=== PATIENT | male | born 1970 | race Caucasian/White ===

== ENCOUNTER 2020-05-08 16:26 | Outpatient (CLI) | payer OTHER, SELFPAY | END 2020-05-08 16:27 | disposition home or self-care (01) | LOC: ANHCOVIDVC 16:26 | PROVIDERS: PCP Family Medicine | DX: Z23 Encounter for immunization (principal) | CPT/HCPCS: 0001A; 91300 ==

== ENCOUNTER 2020-05-29 16:03 | Outpatient (CLI) | payer OTHER, SELFPAY | END 2020-05-29 16:04 | disposition home or self-care (01) | LOC: ANHCOVIDVC 16:03 | PROVIDERS: PCP Family Medicine | DX: Z23 Encounter for immunization (principal) | CPT/HCPCS: 0002A; 91300 ==

== ENCOUNTER → 2020-06-20 14:02 | Outpatient (CLI) | payer OTHER, SELFPAY ==
--- NOTE | ~2020-06-20 | XR_ITS ---
EXAMINATION: XR ankle RT min 3V INDICATION: Right ankle pain, initial encounter TECHNIQUE: Four views of the right ankle are obtained. COMPARISON: None available FINDINGS: Ankle soft tissue swelling is present. There is a subtle curvilinear lucency in the tip of the lateral malleolus. No additional acute osseous findings are evident. There appears to be an old i njury of the lateral malleolus as well. Bone alignment is normal. IMPRESSION: 1. Likely nondisplaced avulsion fracture of the lateral malleolus. Reviewed, dictated and finalized at location B.
== END ==
PROVIDERS: PCP Nurse Practitioner Family; Visit Provider Nurse Practitioner Family
DX: M25.571 Pain in right ankle and joints of right foot (principal)
CPT/HCPCS: 73610

== ENCOUNTER 2020-06-20 14:35 | Emergency (ER) | payer OTHER, SELFPAY ==
--- NOTE | 2020-06-20 14:42 | ED.LOWEXIN ---
HPI - Extremity Injury (Lower) General Chief Complaint: Extremity Injury, Lower Stated Complaint: R ANKLE PAIN Time Seen by Provider: 06/20/20 14:42 Source: patient and RN notes reviewed History of Present Illness HPI Narrative: Patient is a 49-year-old male who presents the urgent care with complaints of right ankle pain and swelling. Patient states that he slipped on Dennis glue bottle coming off a ladder at home. Patient states it happened last Wednesday. States that he iced and elevated the ankle for 2 days and has been wrapping it and continued to go about his daily activities. Patient states he is also been taking some pain medication in the evenings. States that after long days the ankle does swell significantly. Denies of any other acute complaints. No acute distress noted. Patient aware of the plan of care. Some parts of this dictation were generated by voice recognition software and may contain typographical and/or grammatical inaccuracies. Related Data Allergies Allergy/AdvReac Type Severity Reaction Status Date / Time No Known Allergies Allergy Verified 06/20/20 14:53 Review of Systems Review of Systems: Narrative: CONSTITUTIONAL: Denies fever, chills, or sweats. EYES: Denies visual changes, redness, or discharge. ENT: Denies rhinorrhea, congestion, sore throat, or otalgia. CARDIOVASCULAR: Denies chest pain, palpitations, or edema. RESPIRATORY: Denies cough or dyspnea. GASTROINTESTINAL: Denies abdominal pain, nausea, vomiting, or diarrhea. GENITOURINARY: Denies dysuria or hematuria. SKIN: Denies rash or itching. MUSCULOSKELETAL: Reports of right ankle pain and swelling NEUROLOGIC: Denies headache, numbness, or weakness. All other systems reviewed are negative, except as documented in HPI. PMFSH Social History Social History Smoking status: Current every day smoker Alcohol intake: current Comments At the time of my signature, I reviewed and agree with the nursing past medical, surgical, social, and family history. There is no relevant family history pertinent to the patient complaint. Exam Narrative: Exam Narrative: GENERAL: This is a well-nourished, well-developed patient, in no apparent distress. HEAD: normocephalic, atraumatic. EYES: PERRL. Sclera clear/white. Vision is grossly intact. EARS: External ears normal NOSE: External nose normal with no obvious nasal discharge, nares without redness, no rhinorrhea. THROAT: Mucous membranes moist NECK: Neck supple SKIN: warm, intact with no suspicious lesions or rash, good texture and turgor. NEURO: awake, alert, and oriented to person, place and time. There were no obvious focal neurologic abnormalities. EXTREMITIES: Course Vital Signs Vital signs: Vital Signs Temperature 97.9 F 06/20/20 14:53 Pulse Rate 72 06/20/20 14:53 Respiratory Rate 16 06/20/20 14:53 Blood Pressure 157/84 H 06/20/20 14:53 Pulse Oximetry 99 06/20/20 14:53 Temperature 97.9 F 06/20/20 14:53 Pulse Rate 72 06/20/20 14:53 Respiratory Rate 16 06/20/20 14:53 Blood Pressure 157/84 H 06/20/20 14:53 Pulse Oximetry 99 06/20/20 14:53 Reviewed-patient is informed that they may have pre-hypertension or hypertension based on a blood pressure reading in the department. I recommend the patient call the primary care provider listed on their discharge instructions or a physician of their choice this week to arrange follow-up for further evaluation of possible pre-hypertension or hypertension. Procedures Orthopedic Splinting/Casting Injury #1: Side: right Lower Extremity Injury Location: ankle OCL: short leg Pre-Procedure Neuro Vascular Exam: normal Post-Procedure Neuro Vascular Exam: normal Other Orthopedic Equipment: crutches Additional Comments: Short leg posterior right OCL placed for lateral right malleolus nondisplaced fracture. Use of crutches directed. No complications. Procedure tolerated. Successful.
[2020-06-20 14:53] VITALS: BP 157/84; PULSE 72; RESP 16; TEMP 36.6; O2SAT 99
== END 2020-06-20 15:23 | disposition home or self-care (01) ==
PROVIDERS: Emergency Provider Nurse Practitioner Family; PCP Family Medicine
DX: S82.61XA Displaced fracture of lateral malleolus of right fibula, initial encounter for closed fracture (principal); W11.XXXA Fall on and from ladder, initial encounter; F17.200 Nicotine dependence, unspecified, uncomplicated
CPT/HCPCS: 29515; 99214; G0463

== ENCOUNTER 2022-02-09 19:12 | Emergency (ER) | payer OTHER, SELFPAY ==
[2022-02-09 19:22] VITALS: BP 156/107; PULSE 88; RESP 18; TEMP 37.6; O2SAT 98
--- NOTE | 2022-02-09 19:29 | ED.BACK ---
HPI - Back Pain/Injury General Chief Complaint: Back Pain/Injury Stated Complaint: BACK PAIN Time Seen by Provider: 02/09/22 19:25 Source: patient Mode of arrival: ambulatory Limitations: no limitations History of Present Illness HPI Narrative: Mr. Guerrero is a 51-year-old male patient presenting to the clinic today with complaints of right shoulder pain and left sciatica type pain. He reports he has been done with the sciatica for a couple weeks now and has been on a couple rounds of prednisone for the symptoms. States he was doing some stretches and thinks he may have over compensated and injured his right shoulder. He reports that there is pain to the anterior shoulder and he is having difficulty with any movement due to the pain. Related Data Allergies Allergy/AdvReac Type Severity Reaction Status Date / Time No Known Allergies Allergy Verified 02/09/22 19:21 Review of Systems Review of Systems: Pertinent positives per HPI. Patient denies any fever, chills, rash, headache, visual changes, dizziness, cough, runny nose, sore throat, shortness of breath, chest pain, palpitations, nausea, vomiting, diarrhea, constipation, abdominal pain, or any urinary issues. PMFSH Past Medical History Medical History Anxiety state, unspecified Cervical radiculopathy at C5 Cubital tunnel syndrome on right Entrapment of left ulnar nerve Right lumbar radiculopathy Vitamin D deficiency, unspecified Surgical History Surgical History History of laminectomy Social History Social History Smoking packs per day: 1 Smoking cigarettes per day: 20.0 Smoking status: Current every day smoker Alcohol intake: current Alcohol use details: occasional Comments At the time of my signature, I reviewed and agree with the nursing past medical, surgical, social, and family history. There is no relevant family history pertinent to the patient complaint. Exam Narrative: General: Well-developed, well nourished, in no apparent distress Head: Normocephalic, atraumatic. Cardio: Regular rate and rhythm, s1 and s2 normal, no murmur appreciated. Resp: Clear to auscultation bilaterally, no rhonchi, rales, wheezing or rubs. Musculoskeletal: No deformity, tender to palpation over the anterior portion of the right shoulder, pain with extension, anterior reach, or posterior reach, very limited range of motion of the right shoulder due to pain, tenderness to palpation over the left posterior hip/SI joint with radiation of pain down the left leg, bilateral lower muscle strength strong and equal, peripheral pulse strong, no edema, no cyanosis, normal gait and station Course Course Emergency Course: Portions of this record may have been created with voice recognition software. Level of Care: Express Care Visit Vital Signs Vital signs: Vital Signs Temperature 37.6 C 02/09/22 19: Pulse Rate 88 02/09/22 19:22 Respiratory Rate 18 02/09/22 19:22 Blood Pressure 156/107 H 02/09/22 19:22 Pulse Oximetry 98 02/09/22 19:22 Oxygen Delivery Room Air 02/09/22 19:22 Temperature 37.6 C 02/09/22 19:22 Pulse Rate 88 02/09/22 19:22 Respiratory Rate 18 02/09/22 19:22 Blood Pressure 156/107 H 02/09/22 19:22 Pulse Oximetry 98 02/09/22 19:22 Oxygen Delivery Room Air 02/09/22 19:22 Vital signs reviewed MDM - Back Pain/Injury MDM Narrative Medical decision making narrative: At the time of visit patient appears to be pretty uncomfortable. He has limited range of motion to the right shoulder due to pain. I suspect he has a shoulder strain as well as left-sided sciatica. Prescription for naproxen and Flexeril was sent to the pharmacy. Supportive measures were discussed with the patient he voiced understanding of discharge instructions. Arm sling
[2022-02-09] MEDS: KETOROLAC (*BKC) 60 MG/2 ML VIAL IM (19:35)
== END 2022-02-09 19:50 | disposition home or self-care (01) ==
PROVIDERS: Emergency Provider Nurse Practitioner Family; PCP Family Medicine
DX: M54.32 Sciatica, left side (principal); S46.912A Strain of unspecified muscle, fascia and tendon at shoulder and upper arm level, left arm, initial encounter; X58.XXXA Exposure to other specified factors, initial encounter; F17.210 Nicotine dependence, cigarettes, uncomplicated
CPT/HCPCS: 96372; 99213; A4565; G0463; J1885

== ENCOUNTER 2022-02-28 09:51 | Outpatient (CLI) | payer OTHER, SELFPAY ==
--- NOTE | ~2022-02-28 | MR_ITS ---
MRI of the lumbar spine Clinical History: Sciatica Technique: Axial T2-weighted images, and sagittal T1-weighted, T2-weighted, and T2 fat-sat images wer e acquired. Findings: No fracture or subluxation identified in the lumbar spine. Vertebral bodies maintain normal height and alignment. No suspicious bone marrow signal abnormality seen. At L1-L2, there is no disc bulge or herniation. There is facet arthropathy. No spinal canal stenosis or neural foraminal narrowing. At L2-L3, there is minimal disc bulge with mild facet arthropathy. No spinal canal stenosis or neural foraminal narrowing. At L3-L4, there is a central disc protrusion with probable superimposed extrusion, extending inferior ly, and resulting in moderate compression of the thecal sac at this level. Bilateral neural foramina are preserved. At L4-L5, there is diffuse disc bulge with facet arthropathy. No armand spinal canal stenosis. There i s moderate to severe right neural foraminal narrowing and moderate left neural foraminal narrowing. At L5-S1, there is mild central disc protrusion with mild facet arthropathy. No spinal canal stenosis . There is mild to moderate right neural foraminal narrowing and mild left neural foraminal narrowing . Paravertebral soft tissues are unremarkable. Impression: Probable disc protrusion and superimposed extrusion at L3-L4, resulting in moderate thecal sac compre ssion at this level. Bilateral neural foraminal narrowing at L4-L5 and L5-S1, as detailed above. Reviewed, dictated and finalized at [facility]. PREP WORKER Impression: Probable disc protrusion and superimposed extrusion at L3-L4, resulting in mode rate thecal sac compression at this level. Bilateral neural foraminal narrowing at L4-L5 and L5-S1, as detailed above.
== END 2022-02-28 09:52 | disposition home or self-care (01) ==
PROVIDERS: PCP Family Medicine; Visit Provider Physician Assistant
DX: M54.32 Sciatica, left side (principal)
CPT/HCPCS: 72148

== ENCOUNTER 2022-03-13 14:49 | Outpatient (CLI) | payer OTHER, SELFPAY ==
--- NOTE | ~2022-03-13 | CT_ITS ---
EXAMINATION: CT lumbar spine wo con DATE: 03/13/2022 15:07 INDICATION: Lumbar radiculopathy. TECHNIQUE: Computed tomography (CT) of the lumbar spine was performed without intravenous contrast. A utomated exposure control and iterative reconstruction technique were employed. The dose-length produ ct was 417.55 mGy-cm. COMPARISON: Lumbar spine MRI 02/28/2022 FINDINGS: There is 6 degrees dextrocurvature of thoracic lumbar spine. There is mild chronic anterior wedging of T11-L1 vertebral bodies. There is mildly decreased disc height at L2-L3 and L3-L4, modera tely decreased disc height at L4-L5, and severely decreased disc height at L5-S1 with endplate remode ling. There is developmental osseous central canal stenosis from L2-L4. The following disc levels are specifically discussed: L1-L2: The disc does not extend beyond the endplate margin. There is moderate bilateral facet joint o steoarthritis. There is no neural foraminal stenosis. There is no central canal stenosis. L2-L3: The disc is bulging. There is mild bilateral facet joint osteoarthritis. There is mild bilater al neural foraminal stenosis. There is mild central canal stenosis. L3-L4: The disc is bulging. There is severe bilateral facet joint osteoarthritis. There is mild bilat eral neural foraminal stenosis. There is moderate central canal stenosis. L4-L5: The disc is bulging. There is severe bilateral facet joint osteoarthritis. There is moderate b ilateral neural foraminal stenosis. There is mild central canal stenosis. L5-S1: The disc is bulging. There is severe bilateral facet joint osteoarthritis. There is moderate r ight and mild left neural foraminal stenosis. There is mild central canal stenosis. IMPRESSION: 1. Severe lumbar spondylosis. Reviewed, dictated and finalized at location A. LIANDEER LOPPER
== END 2022-03-13 14:50 | disposition home or self-care (01) ==
PROVIDERS: PCP Family Medicine; Visit Provider Neurological Surgery
DX: M47.26 Other spondylosis with radiculopathy, lumbar region (principal)
CPT/HCPCS: 72131

== ENCOUNTER 2022-03-23 11:11 | Outpatient (CLI) | payer OTHER, SELFPAY ==
[2022-03-23 11:36] LABS: Basophils Absolute Auto 0.05 K/mm3 (0.00-0.10); Basophils Percent Auto 0.5 % (0.0-1.0); Eosinophils Absolute Auto 0.09 K/mm3 (0.02-0.50); Eosinophils Percent Auto 0.9 % (1.0-6.0); Hematocrit 45.4 % (40.0-54.0); Hemoglobin 15.2 g/dL (14.0-18.0); Immature Granulocyte Absolute 0.05 K/mm3 (0.00-0.00); Immature Granulocyte Percent A 0.5 % (0.0-0.0); Lymphocytes Absolute Auto 2.73 K/mm3 (1.10-4.50); Lymphocytes Percent Auto 26.3 % (18.0-42.0); Mean Corpuscular HGB Conc 33.5 g/dL (32.0-36.0); Mean Corpuscular Hemoglobin 32.3 pg (27.0-31.0); Mean Corpuscular Volume 96.6 fL (78.0-102.0); Mean Platelet Volume 8.7 fl (8.7-11.0); Monocytes Percent Auto 9.6 % (2.0-11.0); Neutrophils Absolute Auto 6.5 K/mm3 (1.7-7.2); Neutrophils Percent Auto 62.2 % (50.0-70.0); Platelet Count Result 315 K/mm3 (150-420); Red Cell Distribution Width 13.1 % (11.6-14.4); White Blood Count 10.4 K/mm3 (4.8-10.8)
[2022-03-23 11:50] LABS: Partial Thromboplastin Time 29.2 SEC (23.90-30.70); Prothrombin Time 10.7 Seconds (9.50-12.10)
[2022-03-23 12:00] LABS: Alanine Aminotransferase 52 U/L (16-63); Albumin Level 4.2 g/dL (3.4-5.0); Alkaline Phosphatase 58 U/L (46-116); Anion Gap 8 mmol/L (8-16); Aspartate Amino Transferase 24 U/L (15-37); Bilirubin,Total 0.3 mg/dL (0.00-1.00); Blood Urea Nitrogen 12 mg/dL (7-18); Calcium 8.9 mg/dL (8.5-10.1); Carbon Dioxide 31 mmol/L (21-32); Chloride 102 mmol/L (98-108); Estimated Glomerular Filt Rate > 60; Glucose 106 mg/dL (70-99); Osmolality Calculated 291 mOsm/kg (285-295); Potassium 3.9 mmol/L (3.5-5.1); Sodium 141 mmol/L (136-145); Total Protein 7.5 g/dL (6.4-8.2)
== END 2022-03-23 11:12 | disposition home or self-care (01) ==
LOC: CHSLAB 11:21
PROVIDERS: PCP Family Medicine; Visit Provider Neurological Surgery
DX: Z01.818 Encounter for other preprocedural examination (principal)
CPT/HCPCS: 36415; 80053; 85025; 85610; 85730; 86900; 86901

== ENCOUNTER 2024-01-03 07:28 | Outpatient (CLI) | payer OTHER, SELFPAY ==
[2024-01-03 07:53] LABS: Alanine Aminotransferase 31 U/L (6-50); Albumin Level 4.5 g/dL (3.5-5.1); Alkaline Phosphatase 50 U/L (38-126); Anion Gap 9 mmol/L (4-12); Aspartate Amino Transferase 31 U/L (17-59); Bilirubin,Total 0.4 mg/dL (0.2-1.3); Blood Urea Nitrogen 15 mg/dL (9-20); Calcium 9.4 mg/dL (8.4-10.2); Carbon Dioxide 27 mmol/L (22-30); Chloride 105 mmol/L (98-107); Cholesterol 196 mg/dL (0-200); Estimated Glomerular Filt Rate > 60; Glucose 136 mg/dL (65-110); HDL Direct 65 mg/dL; Sodium 141 mmol/L (137-145); Triglycerides 80 mg/dL (<150)
[2024-01-03 08:04] LABS: LDL Cholesterol Direct 98 mg/dL
[2024-01-03 08:10] LABS: Basophils Absolute Auto 0.1 K/mm3 (0.0-0.1); Basophils Percent Auto 0.6 % (0.2-1.2); Eosinophils Absolute Auto 0.1 K/mm3 (0-0.3); Eosinophils Percent Auto 1.3 % (0-4.4); Hematocrit 48.2 % (42.0-52.0); Immature Granulocyte Absolute 0.04 K/mm3 (0.00-0.031); Immature Granulocyte Percent A 0.5 % (0-0.5); Lymphocytes Absolute Auto 2.27 K/mm3 (0.9-3.2); Lymphocytes Percent Auto 27.4 % (18.3-44.2); Mean Corpuscular HGB Conc 33.2 g/dl (32-36); Mean Corpuscular Hemoglobin 32.9 pg (26-34); Mean Platelet Volume 8.8 fl (7.4-10.4); Monocytes Absolute Auto 1.1 K/mm3 (0.1-0.6); Monocytes Percent Auto 13.3 % (2.6-8.5); Neutrophils Absolute Auto 4.7 K/mm3 (1.3-6.7); Neutrophils Percent Auto 56.9 % (45.5-73.1); Platelet Count Result 309 k/mm3 (150-375); Red Blood Count 4.87 M/mm3 (4.6-6.20); Red Cell Distribution Width 13.6 % (11.5-14.5); White Blood Count 8.3 K/mm3 (4.5-10.0)
== END 2024-01-03 07:29 | disposition home or self-care (01) ==
LOC: ANHLAB 07:30
PROVIDERS: PCP Family Medicine; Visit Provider Student in an Organized Health Care Education/Training Program
DX: Z13.0 Encounter for screening for diseases of the blood and blood-forming organs and certain disorders involving the immune mechanism (principal); E66.3 Overweight; Z13.29 Encounter for screening for other suspected endocrine disorder; Z13.220 Encounter for screening for lipoid disorders
CPT/HCPCS: 36415; 80053; 80061; 84443; 85025

== ENCOUNTER 2024-07-17 08:38 | Outpatient (CLI) | payer OTHER, SELFPAY ==
--- NOTE | ~2024-07-17 | US_ITS ---
EXAMINATION: US arterial ankle brachial ind DATE: 07/17/2024 09:09 INDICATION: Cold left lower extremity. Ongoing smoker. TECHNIQUE: Segmental pressures and plethysmographic and Doppler waveforms of the brachial and lower e xtremity arteries were obtained. COMPARISON: None. FINDINGS: Right and left brachial artery pressures of 146 mm Hg and 148 mm Hg, respectively, are concordant (no rmal difference <= 30 mmHg). The right ankle-brachial index (BRIAN) is 1.14 (normal >= 0.9-1.0). The right great toe-brachial index (TBI) is 0.71 (normal >= 0.65). Arterial Doppler waveforms biphasic with brisk systolic upstrokes at both right posterior tibial and dorsalis pedis arteries. The left BRIAN is 1.12. The left TBI is 0.76. Arterial Doppler waveforms are biphasic with brisk systol ic upstrokes at both left posterior tibial and dorsalis pedis arteries. IMPRESSION: 1. No significant arterial occlusive disease with normal bilateral ABIs and TBIs Reviewed, dictated and finalized at location A. IMPRESSION: 1. No significant arterial occlusive disease with normal bilateral ABIs and TBI s
--- OUTSIDE RECORDS SUMMARY | 2024-07-17 08:44 | XMS_ITS | Clinical Summary ---
Author Organization [facility] Address [facility] [place] [address] Care Team Providers Care Chemical Handler Name Role Phone Gloria Mejia MD Primary Care Provider [phone] Allergies No known active allergies Medications HYDROcodone-jj taminophen (NORCO) 5-325 MG tabletIndicatio ns:Acute Pain < 7 Day Supply Take 1-2 tablets by mouth every 4 (four) hours as needed for Pain. Indications: Acute Pain < 7 Day Supply 30 tablet 03/27/2022 Active Immunizations Immunization Administration Dates Next Due PFIZER COVID-19 (ORIGINAL FO RMULATION, PURPLE CAP) mRNA, LNP-S, PF, 30 MCG/0.3 ML DOSE 05/29/2020,05/08/2020 Family History Medical History Relation Comments Cancer Father Lung Cancer Father Stroke Father Relation Status Comments Father (Age 72) of lung c ancer Mother says he did not know his mother Son Alive Social History Tobacco Use Types Packs/Day Years Used Date Smoking Tobacco: Every Day Cigarettes 1 30 Smokeless Tobacco: Never Tobacco Cessation:Ready to Q uit: Not Asked; Counseling Given: Not Answered Alcohol Use Standard Drinks/Week Comments Yes 1 (1 standard drink = 0.6 oz pure alcohol) 3 times a month has a couple margaritas, some beer- lately has not had beer Sex and Gender Information Value Date Recorded Sex Assigned at Not on file Legal Sex Male 2:35 PM CRATING AND MOVING ESTIMATOR Gender Identity Not on file Sexual Orientation Not on file Last Filed Vital Signs Vital Sign Reading Time Taken Comments Blood Pressure 145/101 03/27/2022 3:58 PM CRATING AND MOVING ESTIMATOR Pulse 77 03/27/2022 3:58 PM CRATING AND MOVING ESTIMATOR Temperature 36.7 C (98 F) 03/27/2022 3:58 PM CRATING AND MOVING ESTIMATOR Respiratory Rate 16 03/27/2022 3:58 PM CRATING AND MOVING ESTIMATOR Oxygen Saturation 94% 03/27/2022 3:58 PM CRATING AND MOVING ESTIMATOR Inhaled Oxygen Concentration - - Weight 75.8 kg (167 lb) 03/24/2022 10:38 AM CRATING AND MOVING ESTIMATOR Height 170.2 cm (5' 7 ) 03/24/2022 10:38 AM CRATING AND MOVING ESTIMATOR Body Mass Index 26.16 03/24/2022 10:38 AM CRATING AND MOVING ESTIMATOR Plan of Treatment Health Maintenance Due Date Last Done Comments Colorectal Cancer Screening Colonoscopy (10 Years) 1970 Annual Physical 1973 Hepatitis C 1988 DTaP, Tdap and Td Vaccines ( 1 - Tdap) 1989 Hepatitis B Vaccines (1 of 3 - 19+ 3-dose series) 1989 Pneumococcal Vaccine: 50+ Years (1 of 2 - PCV) 1989 Zoster Vaccines (1 of 2) 2020 COVID-19 Vaccine (3 - 2023-2 5 season) 2023 05/29/2020, 05/08/2020 Meningococcal B Vaccine Aged Out No l onger eligible based on patient's age to complete this topic Meningococcal Vaccine Aged Out No mel luis eligible based on patient's age to complete this topic RSV Immunizations Under 20 Months Aged Out No longer eligible b ased on patient's age to complete this topic Insurance Care Teams Chemical Handler Relationship Specialty Start Date End Date Gloria Meija MD [facility] [place] [id number] PCP - General FAMILY PRACTICE 03/24/22
== END 2024-07-17 08:39 | disposition home or self-care (01) ==
PROVIDERS: PCP Family Medicine; Visit Provider Student in an Organized Health Care Education/Training Program
DX: R20.9 Unspecified disturbances of skin sensation (principal); F17.210 Nicotine dependence, cigarettes, uncomplicated; M79.671 Pain in right foot; M79.672 Pain in left foot
CPT/HCPCS: 93922

== ENCOUNTER 2024-09-07 13:37 | Outpatient (CLI) | payer OTHER, SELFPAY ==
--- NOTE | ~2024-09-07 | XR_ITS ---
XR cervical spine 4-5V 09/07/2024 14:04 Indication: Radiculopathy Procedure: 5 views cervical spine Comparison: No prior studies for comparison. Findings: Straightening of cervical lordosis. There is disc narrowing at C4-5, C5-6 and C6-7 with pro minent ventral osteophytes at these levels. No fracture, subluxation or dislocation. No prevertebral soft tissue swelling. Odontoid process is normal. There is multilevel uncinate hypertrophy. Lung apic es are unremarkable. Impression: 1: Moderate cervical spondylosis. Reviewed, dictated and finalized at location A. Impression: 1: Moderate cervical spondylosis.
== END 2024-09-07 13:38 | disposition home or self-care (01) ==
LOC: GOSHIMG 13:37
PROVIDERS: PCP Family Medicine; Visit Provider Family Medicine
DX: M43.02 Spondylolysis, cervical region (principal)
CPT/HCPCS: 72050

== ENCOUNTER 2024-09-16 08:48 | Outpatient (CLI) | payer OTHER, SELFPAY ==
--- NOTE | ~2024-09-16 | MR_ITS ---
MRI of the cervical spine Clinical History: Pain and upper extremity numbness Technique: Axial T2-weighted and gradient images, and sagittal T1-weighted, T2-weighted, and STIR josselyn ges were acquired. Findings: No acute fracture or subluxation evident. No suspicious bone marrow signal abnormality seen . At C2-C3, there is no significant disc bulge or herniation. No spinal canal stenosis, cord compressio n, or neural foraminal narrowing. At C3-C4, there is minimal disc osteophyte complex. There is mild facet arthropathy. No central canal stenosis or cord compression. Probable mild bilateral neural foraminal narrowing. At C4-C5, there is moderate degenerative distended with extensive disc osteophyte complex. There is s evere canal stenosis and focal moderate to severe cord compression as well. There is advanced bilater al neural foraminal narrowing with bilateral facet arthropathy. At C5-C6, there is moderate degenerative disc narrowing. There is disc osteophyte complex resulting i n moderate canal stenosis and cord compression. There is severe bilateral neural foraminal narrowing. At C6-C7, there is moderate degenerative disc narrowing. There is disc osteophyte, resulting in sever e canal stenosis and severe cord compression. There is severe bilateral neural foraminal narrowing. No abnormal signal evident in the spinal cord. Paravertebral soft tissues are unremarkable. Impression: Severe degenerative spondylitic change, with severe canal stenosis and associated cord compression at C4-C5, C5-C6, and C6-C7. Please see details above. Multilevel neural foraminal narrowing, as above. Reviewed, dictated and finalized at [facility]. Impression: Severe degenerative spondylitic change, with severe canal stenosis and associat ed cord compression at C4-C5, C5-C6, and C6-C7. Please see details above. Multilevel neural foraminal narrowing, as above.
--- OUTSIDE RECORDS SUMMARY | 2024-09-16 08:50 | XMS_ITS | Clinical Summary ---
Author Organization [facility] Address [facility] [place] [address] Care Team Providers Care Presto Log Operator Name Role Phone Gloria Mejia MD Primary Care Provider [phone] Allergies No known active allergies Medications HYDROcodone-jj [...] on file Legal Sex Male 2:35 PM TRAVEL REGISTERED NURSE NICU Gender Identity Not on file Sexual Orientation Not on file Last Filed Vital Signs Vital Sign Reading Time Taken Comments Blood Pressure 145/101 03/27/2022 3:58 PM TRAVEL REGISTERED NURSE NICU Pulse 77 03/27/2022 3:58 PM TRAVEL REGISTERED NURSE NICU Temperature 36.7 C (98 F) 03/27/2022 3:58 PM TRAVEL REGISTERED NURSE NICU Respiratory Rate 16 03/27/2022 3:58 PM TRAVEL REGISTERED NURSE NICU Oxygen Saturation 94% 03/27/2022 3:58 PM TRAVEL REGISTERED NURSE NICU Inhaled Oxygen Concentration - - Weight 75.8 kg (167 lb) 03/24/2022 10:38 AM TRAVEL REGISTERED NURSE NICU Height 170.2 cm (5' 7) 03/24/2022 10:38 AM TRAVEL REGISTERED NURSE NICU Body Mass Index 26.16 03/24/2022 10:38 AM TRAVEL REGISTERED NURSE NICU Plan of Treatment Health Maintenance Due Date [...] to complete this topic Insurance Care Teams Presto Log Operator Relationship Specialty Start Date End Date Gloria Mejia MD [facility] [place] [id number] PCP - General FAMILY PRACTICE 03/24/22
--- OUTSIDE RECORDS SUMMARY | 2024-09-16 08:50 | XMS_ITS | Continuity of Care Document ---
Author Organization [facility] Address [address], [place] [address] Phone Care Team Providers Care Account Development Representative Name Role Phone Gissel Costa MD Unavailable Unavailable Procedures Procedure Date No Charge Subsequent Hospital Care Subsequent Hospital Care Subsequent Hospital Care Subsequent Hospital Care Subsequent Hospital Care Subsequent Hospital Care Subsequent Hospital Care Subsequent Hospital Care Subsequent Hospital Care Initial Hospital Care Subsequent Hospital Care Subsequent Hospital Care Advance Directives Directive Yes / No Effective Date File Name No Information Encounters Encounter Description Practice Location Reason(s) For Visit Diagnoses Date Provider Providers Copied on Encounter [facility], [address], [address], tel:[phone] [facility] No Information 9 Julissa Chauhan. [address] [facility], [address], [place], [place], [id number], [place]. tel:[phone] Referring Provider: Tony Vincent, [address] [facility] [address], [place], [address]. tel:[phone] Subsequent Hospital Care [facility], [address] [place] [address], [address], tel:[phone] [facility] Severe sepsis with septic shockAcidosisAc chenega kidney failure, unspecifiedOthe r chronic pancreatitis 9 Julissa Chauhan. [address] [facility], [address], [place], [place], [id number], [place]. tel:[phone] Referring Provider: Constantino Sauceda [address], [place], [place], [id number]. tel:[phone] Subsequent Hospital [facility], [address] [place] [address], [address], tel:[phone] [facility] Severe sepsis with septic shockAcidosisAc chene[place] kidney failure, unspecifiedOthe r chronic pancreatitis 9 Julissa Chauhan. [address] [facility], [address], [place], [place], [id number], [place]. tel:[phone] Referring Provider: Constantino Sauceda [facility] [address], [place], [place], [id number]. tel:[phone] Subsequent [facility], [address] [place] [address], [address], [place] tel:[phone] [facility] Severe sepsis with septic shockAcidosisAc chenega kidney failure, unspecifiedOthe r chronic pancreatitis 9 Julissa Chauhan. [address] [facility], [address], [place], [place], [id number], . tel:[phone] Referring Provider: Constantino Sauceda [address], [place], [place], [id number]. tel:[phone] Subsequent [facility], [address] [place] [address], [address], [place] tel:[phone] [facility] Severe sepsis with septic shockAcidosisAc chene[place] kidney failure, unspecifiedOthe r chronic pancreatitis 9 Iman Calvert. [address] [facility], [address], [place], [address], [place]. tel:[phone] Referring Provider: Constantino Sauceda [address] Jos[address], [place], [place], [id number]. tel:[phone] Subsequent Hospital Care [facility], [address] [place] [address], [facility], tel:[phone] [facility] AcidosisAnuria and oliguriaSevere sepsis with septic shockFlu due to oth ident influenza virus w oth resp manifestOther chronic pancreatitisTyp e 2 diabetes mellitus with unspecified complications 9 Julissa Chauhan. [address] [facility], [address], [place], [place], [id number], . tel:[phone] Referring Provider: Constantino Sauceda E Joselin Avsusan [address], [place], [place], [id number]. tel:[phone] Subsequent [facility], [address] [place] [address], [facility], tel:[phone] [facility] AcidosisAnuria and oliguriaSevere sepsis with septic shockFlu due to oth ident influenza virus w oth resp manifestOther chronic pancreatitisTyp e 2 diabetes mellitus with unspecified complications 9 Julissa Chauhan. [address] [facility], [address], [place], [place], [id number], . tel:[phone] Referring Provider: Constantino Sauceda [address], [place], [place], [id number]. tel:[phone] [facility], [address] [place] [address], [address], [place] tel:[phone] [facility] Severe sepsis with septic shockAcidosisAc chenega kidney failure, unspecifiedOthe r chronic pancreatitis 9 Julissa Chauhan. [address] [facility], [address], [place], [place], [id number], . tel:[phone] Referring Provider: Constantino Sauceda E Jsoelin Joyce [address], [place], [place], [id number]. tel:[phone] Subsequent Hospital Care [facility], [address] [place] [address], [address], tel:[phone] [place] [address] AcidosisAnuria and oliguriaSevere sepsis with septic shockFlu due to oth ident influenza virus w oth resp manifestOther chronic pancreatitisTyp e 2 diabetes mellitus with unspecified complications 9 Julissa Chauhan. [address] [facility], [address], [address], . tel:[phone] Referring Provider: Constantino Sauceda E Joselin Cook [facility] [address], [place], [place], [id number]. tel:[phone] Subsequent Hospital Care [facility], [address] [place] [address], [facility], tel:[phone] [facility] AcidosisAnuria and oliguriaSevere sepsis with septic shockFlu due to oth ident influenza virus w oth resp manifestOther chronic pancreatitisTyp e 2 diabetes mellitus with unspecified complications 9 Julissa Cahuhan. [address] [facility], [address], [address], . tel:[phone] Referring Provider: Constantino Sauceda [address], [place], [place], [id number]. tel:[phone] Initial Hospital Care [facility], [address] [place] [address], [facility], tel:[phone] [facility] AcidosisAnuria and oliguriaSevere sepsis with septic shockFlu due to oth ident influenza virus w oth resp manifestOther chronic pancreatitisTyp e 2 diabetes mellitus with unspecified complications 9 Julissa Chauhan. [address] [facility], [address], [id number], . tel:[phone] Referring Provider: Constantino Sauceda [address], [place], [place], [id number]. tel:[phone] Subsequent Hospital Care [facility], [address] [place] [address], [address], tel:[phone] [facility] Severe sepsis with septic shockAnuria and oliguriaFlu due to oth ident influenza virus w oth resp manifest 9 Iman Calvert. [address] [facility], [address], [place], [address], . tel:[phone] Referring Provider: Constantino Sauceda E Joselin Cook [facility] [address], [place], [place], [id number]. tel:[phone] [facility] Care [facility], [address] [place] [address], [address], tel:[phone] [facility] AcidosisAnuria and oliguriaSevere sepsis with septic shockFlu due to oth ident influenza virus w oth resp manifestOther chronic pancreatitisTyp e 2 diabetes mellitus with unspecified complications 9 Julissa Chauhan. [address] [facility], [address], [place], [place], [id number], . tel:[phone] Referring Provider: Constantino Sauceda E Joselin Cook [facility] [address], [place], [place], [id number]. tel:[phone] Family History Family Member Type Diagnosis Age At Onset No Information Payers Payer name Insurance type Covered democrat ID Authoriza tion(s) [place] [id number] Social History Type Description Quantity Date Captured Comments Sex Male Smoking Status No Information Chief Complaint And Reason For Visit No Information History Of Present Illness Encounter Date Complaint History Of Prese nt Illness No Information Instructions Date Instruction Additional Infor mation No Information Assessments Type Assessment Date No Information
--- OUTSIDE RECORDS SUMMARY | 2024-09-16 08:50 | XMS_ITS | Continuity of Care Document ---
Author Organization [facility] Address [address] [place] [address] Care Team Providers Care Hot Metal Mixer Operator Name Role Phone Wero German MD Unavailable Unavailable Procedures Procedure Date Echo Complete (2D W/ CF & Doppler) Advance Directives Directive Yes / No Effective Date File Name No Information Encounters Encounter Description Practice Location Reason(s) For Visit Diagnoses Date Provider Providers Copied on Encounter [facility], [address] [place] [address], [address], [facility] No Information 9 Maxi Conteh. [address] [facility], [address], [place], [address], . tel:[phone] Referring Provider: Tony Craig MD A, [address] , [place], [address] . tel:[phone] Family History Family Member Type Diagnosis Age At Onset No Information Payers Payer name Insurance type Covered libertarian ID Authoriza tion(s) No Information Social History Type Description Quantity Date Captured Comments Sex Male Smoking Status No Information Chief Complaint And Reason For Visit No Information Reason For Referral Reason For Referral No Information History Of Present Illness Encounter Date Complaint History Of Prese nt Illness No Information Functional Status Date Functional Assessmen t No Information Instructions Date Instruction Additional Infor mation No Information Assessments Type Assessment Date No Information Patient Care Teams Name Effective Dates (start - stop) Status Members No Information
== END 2024-09-16 08:49 | disposition home or self-care (01) ==
LOC: CHSIMG 08:49
PROVIDERS: PCP Family Medicine; Visit Provider Family Medicine
DX: M54.16 Radiculopathy, lumbar region (principal); M54.12 Radiculopathy, cervical region; M48.02 Spinal stenosis, cervical region
CPT/HCPCS: 72141

== ENCOUNTER 2024-10-19 13:58 | Outpatient (CLI) | payer OTHER, SELFPAY ==
--- NOTE | ~2024-10-19 | MR_ITS ---
MRI of the lumbar spine Clinical History: Radiculopathy Technique: Axial T2-weighted images, and sagittal T1-weighted, T2-weighted, and T2 fat-sat images wer e acquired. Following intravenous administration of 10 cc MultiHance gadolinium, T1-weighted fat-sat imaging was performed in the axial and sagittal planes. Findings: There is no fracture or subluxation of the lumbar spine. Vertebral bodies maintain normal h eight and alignment. There is prominent reactive marrow edema about the L5-S1 disc space due to under lying degenerative disc disease. No suspicious bone marrow signal abnormality seen. At L1-L2, there is no disc bulge or herniation. There is moderate to advanced facet arthropathy. No c entral canal stenosis or neural foraminal narrowing. At L2-L3, there is mild disc bulge with moderate facet arthropathy. No armand central canal stenosis. Neural foramina are preserved. At L3-L4, there is mild disc bulge with advanced facet arthropathy. There is minimal central canal st enosis. There is moderate to severe bilateral neural foraminal narrowing, left worse than right. At L4-L5, there is disc bulge with severe facet arthropathy. There is mild central canal stenosis. Th ere is severe bilateral neural foraminal narrowing, right worse than left. At L5-S1, there is advanced generative disc narrowing with disc bulge and superimposed central disc p rotrusion. There is moderate to advanced facet arthropathy. No armand central canal stenosis. There is moderate left neural foraminal narrowing and advanced right neural foraminal narrowing. Paravertebral soft tissues are unremarkable. No abnormal postcontrast enhancement identified. Impression: Severe degenerative spondylosis from L3 through S1, as detailed above. Reviewed, dictated and finalized at location M. Impression: Severe degenerative spondylosis from L3 through S1, as detailed above.
--- OUTSIDE RECORDS SUMMARY | 2024-10-19 14:02 | XMS_ITS | Continuity of Care Document ---
Author Organization [facility] Address [address] [place] [address] Care Team Providers Care Server Manager Name Role Phone Wero German MD Unavailable Unavailable Procedures Procedure Date Echo Complete (2D W/ CF & Doppler) Advance Directives Directive Yes / No Effective Date File Name No Information Encounters Encounter Description Practice Location Reason(s) For Visit Diagnoses Date Provider Providers Copied on Encounter [facility], [address] [place] [address], [address], [facility] No Information 9 Maxi Conteh. [address] [facility], [address], [address], . tel:[phone] Referring Provider: Tony Craig MD A, [address] , [place], [address] . tel:[phone] Family History Family Member Type Diagnosis Age At Onset No Information Payers Payer name Insurance type Covered constitution party ID Authoriza tion(s) No Information Social History [...]
--- OUTSIDE RECORDS SUMMARY | 2024-10-19 14:03 | XMS_ITS | Clinical Summary ---
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 Gender Identity Not on file Sexual Orientation Not on file Last Filed Vital Signs Vital Sign Reading Time Taken Comments Blood Pressure 145/101 03/27/2022 3:58 PM SAS ETL DEVELOPER Pulse 77 03/27/2022 3:58 PM SAS ETL DEVELOPER Temperature 36.7 C (98 F) 03/27/2022 3:58 PM SAS ETL DEVELOPER Respiratory Rate 16 03/27/2022 3:58 PM SAS ETL DEVELOPER Oxygen Saturation 94% 03/27/2022 3:58 PM SAS ETL DEVELOPER Inhaled Oxygen Concentration - - Weight 75.8 kg (167 lb) 03/24/2022 10:38 AM SAS ETL DEVELOPER Height 170.2 cm (5' 7) 03/24/2022 10:38 AM SAS ETL DEVELOPER Body Mass Index 26.16 03/24/2022 10:38 AM SAS ETL DEVELOPER Plan of Treatment Health Maintenance Due Date [...] to complete this topic Insurance Care Teams Glue Size Machine Operator Relationship Specialty Start Date End Date Gloria Mejia MD [facility] [facility] [address] [place] [address] [place] [id number] PCP - General FAMILY PRACTICE 03/24/22
--- OUTSIDE RECORDS SUMMARY | 2024-10-19 14:03 | XMS_ITS | Continuity of Care Document ---
Author Organization [facility] Address [address] [place] [address] Phone Care Team Providers Care Supervisor Show Operations Name Role Phone Gissel Costa MD Unavailable [...] Providers Copied on Encounter [facility], [address], [address], tel:[phone] [facility] No Information 9 Julissa Chauhan. [address] [facility], [address], [place], [place], [id number], [place]. tel:[phone] Referring Provider: Tony Vincent, [address] [facility] [address], [place], [address]. tel:[phone] Subsequent Hospital Care [facility], [address] [place] [address], [address], tel:[phone] [facility] Severe sepsis with septic shockAcidosisAc [place] kidney failure, unspecifiedOthe r chronic pancreatitis 9 Julissa Chauhan. [address] [facility], [address], [place], [place], [id number], [place]. tel:[phone] Referring Provider: Constantino Sauceda [address], [place], [place], [id number]. tel:[phone] Subsequent Hospital [facility], [address] [place] [address], [address], tel:[phone] [facility] Severe sepsis with septic shockAcidosisAc [place] kidney failure, unspecifiedOthe r chronic pancreatitis 9 Julissa Chauhan. [address] [facility], [address], [place], [place], [id number], [place]. tel:[phone] Referring Provider: Constantino Sauceda [facility] [address], [place], [place], [id number]. tel:[phone] Subsequent [facility], [address] [place] [address], [address], [place] tel:[phone] [facility] Severe sepsis with septic shockAcidosisAc [place] kidney failure, unspecifiedOthe r chronic pancreatitis 9 Julissa Chauhan. [address] [facility], [address], [place], [place], [id number], . tel:[phone] Referring Provider: Constantino Sauceda [address], [place], [place], [id number]. tel:[phone] Subsequent [facility], [address] [place] [address], [address], [place] tel:[phone] [facility] Severe sepsis with septic shockAcidosisAc [place] kidney failure, unspecifiedOthe r chronic pancreatitis 9 Iman Calvert. [address] [facility], [address], [place], [address], [place]. tel:[phone] Referring Provider: Constantino Sauceda E Joselin Cook [address], [place], [place], [id number]. tel:[phone] Subsequent Hospital Care [facility], [address] [place] [address], Critical access hospital, tel:[phone] [facility] AcidosisAnuria and oliguriaSevere sepsis with septic shockFlu due to oth ident influenza virus w oth resp manifestOther chronic pancreatitisTyp e 2 diabetes mellitus with unspecified complications 9 Julissa Chauhan. [address] [facility], [address], [place], [place], [id number], . tel:[phone] Referring Provider: Constantino Sauceda E Joselin Avsusan [address], [place], [place], [id number]. tel:[phone] Subsequent [facility], [address] [place] [address], Critical access hospital, tel:[phone] [facility] AcidosisAnuria and oliguriaSevere sepsis with septic shockFlu due to oth ident influenza virus w oth resp manifestOther chronic pancreatitisTyp e 2 diabetes mellitus with unspecified complications 9 Julissa Chauhan. [address] [facility], [address], [place], [place], [id number], . tel:[phone] Referring Provider: Constantino Sauceda [address], [place], [place], [id number]. tel:[phone] [facility], [address] [place] [address], [address], [place] tel:[phone] [facility] Severe sepsis with septic shockAcidosisAc [place] kidney failure, unspecifiedOthe r chronic pancreatitis 9 Julissa Chauhan. [address] [facility], [address], [place], [place], [id number], . tel:[phone] Referring Provider: Constantino Sauceda E Joselin Joyce [address], [place], [place], [id number]. tel:[phone] Subsequent Hospital Care [facility], [address] [place] [address], [address], tel:[phone] [place] [phone] AcidosisAnuria and oliguriaSevere sepsis with septic shockFlu due to oth ident influenza virus w oth resp manifestOther chronic pancreatitisTyp e 2 diabetes mellitus with unspecified complications 9 Julissa Chauhan. [address] [facility], [address], [id number], . tel:[phone] Referring Provider: Constantino Sauceda E Joselin Cook [facility] [address], [place], [place], [id number]. tel:[phone] Subsequent Hospital Care [facility], [address] [place] [address], Critical access hospital, tel:[phone] [facility] AcidosisAnuria and oliguriaSevere sepsis with septic shockFlu due to oth ident influenza virus w oth resp manifestOther chronic pancreatitisTyp e 2 diabetes mellitus with unspecified complications 9 Julissa Chauhan. [address] [facility], [address], [id number], . tel:[phone] Referring Provider: Constantino Sauceda E [address]elin [address], [place], [place], [id number]. tel:[phone] Initial Hospital Care [facility], [address] [place] [address], Critical access hospital, tel:[phone] [facility] AcidosisAnuria and oliguriaSevere sepsis with septic shockFlu due to oth ident influenza virus w oth resp manifestOther chronic pancreatitisTyp e 2 diabetes mellitus with unspecified complications 9 Julissa Chauhan. [address] [facility], [address], [id number], . tel:[phone] Referring Provider: Constantino Sauceda E Joselin Cook [address], [place], [place], [id number]. tel:[phone] Subsequent Hospital Care [facility], [address] [place] [address], [address], tel:[phone] [facility] Severe sepsis with septic shockAnuria and oliguriaFlu due to oth ident influenza virus w oth resp manifest 9 Iman Calvert. [address] [facility], [address], [place], [address], . tel:[phone] Referring Provider: Constantino Sauceda E Joselin Cook [facility] [address], [place], [place], [id number]. tel:[phone] Subsequent [facility], [address] [place] [address], [address], tel:[phone] [facility] AcidosisAnuria and oliguriaSevere sepsis with septic shockFlu due to oth ident influenza virus w oth resp manifestOther chronic pancreatitisTyp e 2 diabetes mellitus with unspecified complications 9 Julissa Chauhan. [address] [facility], [address], [place], [place], [id number], . tel:[phone] Referring Provider: Constantino Sauceda E Joselin Cook [facility] [address], [place], [place], [id number]. tel:[phone] Family History Family Member Type Diagnosis Age At Onset No Information Payers Payer name Insurance type Covered constitution party ID Authoriza tion(s) [place] [id number] Social History Type Description Quantity Date Captured Comments Sex Male Smoking Status No Information Chief Complaint And Reason For Visit No Information History Of Present Illness Encounter Date Complaint History Of Prese nt Illness No Information Instructions Date Instruction Additional Infor mation No Information Assessments Type Assessment Date No Information
== END 2024-10-19 13:59 | disposition home or self-care (01) ==
LOC: CHSIMG 13:59
PROVIDERS: PCP Family Medicine; Visit Provider Student in an Organized Health Care Education/Training Program
DX: M54.12 Radiculopathy, cervical region (principal); M54.16 Radiculopathy, lumbar region; M43.06 Spondylolysis, lumbar region
CPT/HCPCS: 72158; A9577

== ENCOUNTER 2024-10-20 14:30 | Outpatient (RCR) | payer OTHER, SELFPAY ==
--- NOTE | 2024-08-21 15:07 | PCPTNOTE ---
Patient called to reschedule his physical therapy evaluation to later this week due to a family emergency.
--- NOTE | 2024-08-29 16:52 | OPREHPOC ---
Outpatient Therapy Plan of Care This is a Multidisciplinary Plan of Care that may contain components documented by all disciplines (PT, OT, and ST.) PT Problem 1 PT Problem #1 Knowledge Deficit PT Goal 1 Goal / Goal Update Patient to demonstrate independence with HEP for improved self-reliance of symptom management. Target Visit 4 PT Problem 2 PT Problem #2 Pain PT Goal 1 Goal / Goal Update Patient to decrease subjective reports of low back pain to <4/10 for improved ADL tolerance. Target Visit 4 PT Problem 3 PT Problem #3 Impaired Strength PT Goal 1 Goal / Goal Update Patient to demonstrate L LE strength >=4+/5 for improved functional stability required for ADLs. Target Visit 8 PT Problem 4 PT Problem #4 Impaired Endurance PT Goal 1 Goal / Goal Update Patient to improve distance ambulated during 6MWT from 1350 feet to 1500 feet to demonstrate an improvement in ADL endurance. Target Visit 8
--- NOTE | 2024-08-29 16:52 | PTOPEVAL1 ---
Assessment and note entered by Kylee Cruz, PT Evaluation Information Assessment Status Evaluation ICD-10 Condition Codes (PT) Pain in low back M54.50,Pain in right ankle and joints of right foot M25.571 Subjective Information Pt reports having back surgery over 2 years ago, laminectomy at L4/5. Since his surgery he has started to notice muscle atrophy in the L LE in his thigh and calf. He notes having increased numbness and tingling in the calf and foot as well worse over the last 6-8 months. He thinks he is starting to walk funny and it is slowing him down. He is still able to do all that is asked of him in his work. They performed an BRIAN [facility] that came back normal ABIs and TBIs. He notices both feet can turn purple and cold at times after he is walking or standing for a long period of time, L>R . The longer he sits the harder it is for him to get up due to stiffness. 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 He reports most of his pain is in his back, wears a back brace everyday. He is having trouble sleeping at night, is a side sleeper with one leg crossed overtop. The pt and his are also reporting he has intermittent numbness and tingling in his arms. He reports having jumping/twitching in all 4 extremities as well. He reports dropping things with both hands, something simple like a fork or coffee mug. Reported Pain Level Pain Score 3: Self Report Assessment PT Clinical Summary Pt is a 53 year old male who presents to physical therapy with a worsening sensory changes and weakness in B LEs. Pt demonstrates B LE weakness, radicular pain and tingling that worsens with prolonged weight bearing, gait deficit, and decreased flexibility that limit their ability to perform ADLs. Pt also presents with diminished reflexes and changes in light tough sensation. Pt will benefit from skilled physical therapy to address the above listed deficits and return to PLOF. Pt may benefit from continued medical evaluation due to the complexity of his signs and symptoms. HEP instructed and written handout provided, EX tolerated well with no adverse effects to note post-session. Pt was educated on importance of adherence to HEP. Pt was also educated on anatomy, prognosis, home modalities, objective measures during evaluation, and PT POC. Plan of Care Interventions Electrical Stimulation,Gait Training,Hot Pack/Cold Pack,Manual Therapy,Neuro Re-education, Therapeutic Activities,Therapeutic Exercise PT Services Indicated Yes Treatment Frequency and 2x/wk for 8 weeks Duration These treatments will address the objective and functional deficits as defined above. The patient will be advanced safely and appropriately in order for the patient to progress towards his/her prior level of function. Additional exercises will be introduced and as well as a comprehensive home exercise program upon discharge, if needed, ?to ensure carryover of functional gains achieved in the clinic. This treatment plan has been reviewed and agreement upon by the patient.
--- NOTE | 2024-09-14 09:19 | PCPTNOTE ---
Patient called 09/13 to cancel patient due to him being in a lot of pain.
--- NOTE | 2024-09-22 08:52 | OPREHPOC ---
Outpatient Therapy Plan of Care This is a Multidisciplinary Plan of Care that may contain components documented by all disciplines (PT, OT, and ST.) PT Problem 1 PT Problem #1 Knowledge Deficit PT Goal 1 Goal / Goal Update Patient to demonstrate independence with HEP for improved self-reliance of symptom management. ( progressing, updated) Target Visit 4 Progress Partially Met PT Problem 2 PT Problem #2 Pain PT Goal 1 Goal / Goal Update Patient to decrease subjective reports of low back pain to <4/10 for improved ADL tolerance. Target Visit 4 Progress Met PT Problem 3 PT Problem #3 Impaired Strength PT Goal 1 Goal / Goal Update 1. Patient to demonstrate L LE strength >=4+/5 for improved functional stability required for ADLs. (09/22/24 no change) 2. Patient to demonstrate BUE strength >=4+/5 for improved functional stability required for ADLs. Target Visit 8 PT Problem 4 PT Problem #4 Impaired Endurance PT Goal 1 Goal / Goal Update Patient to improve distance ambulated during 6MWT from 1350 feet to 1500 feet to demonstrate an improvement in ADL endurance. Target Visit 8 Progress Met PT Goal 2 Goal / Goal Update Patient to score >=24 on the DGI to show improvements in balance and decreased level of assistance needed. Target Visit 8 PT Problem 5 PT Problem #5 Impaired Range of Motion PT Goal 1 Goal / Goal Update 1. Patient to demonstrate an increase of cervical ext AROM to 40 deg with minimal c/o pain to improve the ability to drink from a cup. 2. Patient to demonstrate an increase of cervical AROM rotation Winston to 50 deg to improve safety with driving. Target Visit 8
--- NOTE | 2024-09-22 08:52 | PTOPPROG ---
Assessment and note entered by Kylee Cruz, PT Evaluation Information Assessment Status Progress ICD-10 Condition Codes (PT) Radiculopathy, cervical M54.13,Radiculopathy, lumbar region M54.16,Pain in right ankle and joints of right foot M25.571,Pain in left ankle and joints of left foot M25.572 Subjective Information Pt reportshis back has been feeling better since starting therapy. He dioe snot have as high intensity pain as before or as often when getting up from a prolonged sitting position. He is now wanting to address the neck as he received his MRI . He will be seeing a neurosurgeon in November. he also notes having worsening balance as well. Assessment PT Clinical Summary Patient's condition has improved overall as evidenced by advancements in symptoms, mobility, strength, and overall functional use of the extremity. However, some limitations are still present concerning his low back pain. Assessed cervical ROM and BUE strength this dater per order for cervical radiculopathy. Pt has restrictions in ROM with associated pain and BUE weakness. Pt also presented as a fall risk on the DGI scoring 20/30. Patient would benefit from continued skilled PT services to address the above listed impairments and facilitate a return to their PLOF. Plan of Care Interventions Electrical Stimulation,Gait Training,Hot Pack/Cold Pack,Manual Therapy,Neuro Re-education, Therapeutic Activities,Therapeutic Exercise PT Services Indicated Yes Treatment Frequency and 1-2x/wk for 8 weeks Duration These treatments will address the objective and functional deficits as defined above. The patient will be advanced safely and appropriately in order for the patient to progress towards his/her prior level of function. Additional exercises will be introduced and as well as a comprehensive home exercise program upon discharge, if needed, ?to ensure carryover of functional gains achieved in the clinic. This treatment plan has been reviewed and agreement upon by the patient.
--- NOTE | 2024-10-10 08:02 | PCPTNOTE ---
Pt called to cancel his appointment today due to illness.
--- NOTE | 2024-10-20 16:43 | OPREHPOC ---
Outpatient Therapy Plan of Care This is a Multidisciplinary Plan of Care that may contain components documented by all disciplines (PT, OT, and ST.) PT Problem 1 PT Problem #1 Knowledge Deficit PT Goal 1 Goal / Goal Update Patient to demonstrate independence with HEP for improved self-reliance of symptom management. ( progressing, updated) Target Visit 4 Progress Met PT Problem 2 PT Problem #2 Pain PT Goal 1 Goal / Goal Update Patient to decrease subjective reports of low back pain to <4/10 for improved ADL tolerance. Target Visit 4 Progress Met PT Problem 3 PT Problem #3 Impaired Strength PT Goal 1 Goal / Goal Update 1. Patient to demonstrate L LE strength >=4+/5 for improved functional stability required for ADLs. (09/22/24 no change) 2. Patient to demonstrate BUE strength >=4+/5 for improved functional stability required for ADLs. Target Visit 8 Progress Partially Met PT Problem 4 PT Problem #4 Impaired Endurance PT Goal 1 Goal / Goal Update Patient to improve distance ambulated during 6MWT from 1350 feet to 1500 feet to demonstrate an improvement in ADL endurance. Target Visit 8 Progress Met PT Goal 2 Goal / Goal Update Patient to score >=24 on the DGI to show improvements in balance and decreased level of assistance needed. Target Visit 8 Progress Partially Met PT Problem 5 PT Problem #5 Impaired Range of Motion PT Goal 1 Goal / Goal Update 1. Patient to demonstrate an increase of cervical ext AROM to 40 deg with minimal c/o pain to improve the ability to drink from a cup. 2. Patient to demonstrate an increase of cervical AROM rotation [place] to 50 deg to improve safety with driving. Target Visit 8 Progress Partially Met
--- NOTE | 2024-10-20 16:43 | PTOPDC ---
Assessment and note entered by Manan Keller, PT Evaluation Information Assessment Status Discharge ICD-10 Condition Codes (PT) Radiculopathy, cervical M54.13,Radiculopathy, lumbar region M54.16,Pain in right ankle and joints of right foot M25.571,Pain in left ankle and joints of left foot M25.572 Subjective Information Patient reports that he feels that the therapy overall has really helped. He does continue to feel unsteady with dynamic activity. HE has a follow up with neurologist in November and feels that he could potentially be moving to surgery. has no questions on HEP and requesting discharge at this time. Reported Pain Level Pain Score 1,1: Self Report Assessment PT Clinical Summary Patient has shown some improvement in LE strength and gait/mobility. He still has some unsteadiness in feet with balance activity but did not present as a fall risk. He demonstrates understanding of home exercises and will continue to perform. Plan of Care PT Services Indicated Yes
== END 2024-10-23 07:59 | disposition home or self-care (01) ==
LOC: ANHGOSHPT 14:30
PROVIDERS: PCP Family Medicine; Visit Provider Family Medicine
DX: M54.50 Low back pain, unspecified (principal); G89.29 Other chronic pain; M79.671 Pain in right foot; M79.672 Pain in left foot
CPT/HCPCS: 97110; 97112; 97140; 97162; 97164; 97530